=== PATIENT | female | born 1995 ===

== ENCOUNTER 2016-06-22 16:01 | Emergency (ER) | payer OTHER ==
[2016-06-22 16:08] VITALS: BP 124/74; PULSE 76; RESP 16; TEMP 98.1; O2SAT 100
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
== END 2016-06-22 18:52 | disposition home or self-care (01) ==
LOC: H.ER 16:01
DX: S49.92XA Unspecified injury of left shoulder and upper arm, initial encounter (principal); V09.9XXA Pedestrian injured in unspecified transport accident, initial encounter; Y93.9 Activity, unspecified